=== PATIENT | female | born 1995 | race Caucasian/White ===

== ENCOUNTER 2021-11-15 23:21 | Emergency (ER) | payer OTHER ==
[2021-11-15 23:58] VITALS: BP 122/88; PULSE 87; RESP 18; TEMP 98.1
--- NOTE | 2021-11-16 00:51 | ED ---
General Adult HPI - General Source: EMS, RN notes reviewed Mode of arrival: EMS Limitations: no limitations <Harpreet Oscar - Last Filed: 11/16/21 00:49> <Riaz Hill - Last Filed: 11/16/21 02:24> - General Chief complaint: Psychiatric Symptoms Stated complaint: Mental Health Time Seen by Provider: 11/15/21 23:22 - History of Present Illness Initial comments: 26-year-old female with a past medical history of asthma, seizure disorder, depression presents to the emergency room for a chief complaint of psychiatry evaluation. Patient is currently staying at [facility] for heroin abuse. Patient states that she was sent here by [facility] because they thought she caught on her wrist that were self-inflicted. Patient states these cuts are old. She states she has no thoughts of harming herself and would not let her stay there and when she got an evaluation. No thoughts of harming anyone els e.Patient has no other complaints at this time including shortness of breath, chest pain, abdominal pain, nausea or vomiting, headache, or visual changes. (Harpreet Oscar) - Related Data Allergies Allergy/AdvReac Type Severity Reaction Status Date / Time amoxicillin Allergy Anaphylaxis Verified 11/16/21 01:30 Fish Containing Products Allergy Rash/Hives Verified 11/16/21 01:30 [Fish] Penicillins Allergy Anaphylaxis Verified 11/16/21 01:30 Review of Systems ROS Other: All systems not noted in ROS Statement are negative. <Harpreet Oscar - Last Filed: 11/16/21 00:49> ROS Other: All systems not noted in ROS Statement are negative. <Riaz Hill - Last Filed: 11/16/21 02:24> ROS Statement: Those systems with pertinent positive or pertinent negative responses have been documented in the HPI. Past Medical History Past Medical History: Asthma, Seizure Disorder History of Any Multi-Drug Resistant Organisms: None Reported Past Surgical History: No Surgical Hx Reported Past Psychological History: Depression Smoking Status: Current every day smoker Past Alcohol Use History: Rare Past Drug Use History: Heroin, Marijuana, Methamphetamine <Harpreet Oscar - Last Filed: 11/16/21 00:49> General Exam Limitations: no limitations General appearance: alert, in no apparent distress Head exam: Present: atraumatic Eye exam: Present: normal appearance, PERRL, EOMI. Absent: scleral icterus, conjunctival injection ENT exam: Present: normal exam, mucous membranes moist Neck exam: Present: normal inspection, full ROM. Absent: tenderness Respiratory exam: Present: normal lung sounds bilaterally. Absent: respiratory distress, wheezes Cardiovascular Exam: Present: regular rate, normal rhythm, normal heart sounds GI/Abdominal exam: Present: soft, normal bowel sounds. Absent: distended, tenderness Neurological exam: Present: alert Psychiatric exam: Present: normal affect, normal mood. Absent: homicidal ideation, suicidal ideation <Harpreet Oscar - Last Filed: 11/16/21 00:49> Course Vital Signs 11/15/21 23:49 Temperature 98.1 F Pulse Rate 87 Respiratory 18 Rate Blood Pressure 122/88 O2 Sat by Pulse 98 Oximetry Medical Decision Making <Riaz Hill - Last Filed: 11/16/21 02:24> - Medical Decision Making 26 female who was seen in however psychiatry here in the ERpsychiatric evaluation is deemedt stable for discharge back t [facility].o (Riaz Hill) Disposition <Harpreet Oscar - Last Filed: 11/16/21 00:49> Is patient prescribed a controlled substance at d/c from ED?: No <Riaz Hill - Last Filed: 11/16/21 02:24> Clinical Impression: Depression Disposition: HOME SELF-CARE Condition: Fair Instructions (If sedation given, give patient instructions): Depression (ED) Referrals: Nonstaff,Physician [Primary Care Provider] - 1-2 days
[2021-11-16] MEDS ORDERED: ASPIRIN-ACET-CAFF 250-250-65MG 1 EACH TAB PO STA (01:31)
[2021-11-16] MEDS ORDERED: ONDANSETRON ODT 4 MG TAB PO STA (02:21)
== END 2021-11-16 10:09 | disposition home or self-care (01) ==
LOC: EC 23:21
DX: F32.A Depression, unspecified (principal); J45.909 Unspecified asthma, uncomplicated; F17.200 Nicotine dependence, unspecified, uncomplicated; F12.90 Cannabis use, unspecified, uncomplicated; Z88.0 Allergy status to penicillin
CPT/HCPCS: 82075; 99284